=== PATIENT | male | born 1950 | race Caucasian/White ===

== ENCOUNTER → 2018-04-03 | Outpatient (CLI) | payer OTHER ==
[~2018-04-03] MED LIST: PRAMIPEXOLE PO; SEREVENT DISKU50 MCG INH
--- NOTE | 2018-04-07 08:44 | Diagnostic Imaging Report ---
PROCEDURE:MODIFIED BA. SWALLOW COMPARISON:None. INDICATIONS:Throat spasms causing choking. DISCUSSION: Fluoroscopic examination was performed in conjunction with speech pathology during swallowing of a variety of thin and thick liquid consistencies. RADIATION DOSE: Total Time: 1.1 Cumulative air kerma: 8.08 mGy FINDINGS: PREMATURE SPILLAGE: Over the base of the tongue: None To vallecula: With a thick pure. To pyriform sinus: None LARYNGEAL PENETRATION: Silent with thin liquids via straw sip. ASPIRATION: None RESIDUE: VALLECULA: None PYRIFORM SINUS: None PHARYNGEAL WALL: None BASE OF TONGUE: None CONCLUSION: Silent laryngeal penetration with liquids via straw sip. No aspiration. Please see speech pathology report. Dictated by: Leo Burgos M.D. on 04/07/2018 at 8:45 Electronically approved by: Leo Burgos M.D. on 04/07/2018 at 8:45
== END ==
LOC: DX 09:06
PROVIDERS: ATTEND Internal Medicine Gastroenterology
DX: K22.4 Dyskinesia of esophagus (principal); R12 Heartburn
CPT/HCPCS: 74230; 92611; G8996; G8997; G8998

== ENCOUNTER → 2019-04-30 | Day surgery (SDC) | payer MEDICARE, OTHER ==
[2019-04-12 11:58] LABS: BASOPHILS % 0.4 % (0.0-1.0); EOSINOPHILS # (AUTO) 0.2 (0.0-0.4); EOSINOPHILS % 2.3 % (0.0-6.0); HEMATOCRIT 43.1 % (38.2-49.6); HEMOGLOBIN 14.8 g/dL (14.0-18.0); LYMPHOCYTES # (AUTO) 2.8 (1.0-3.2); LYMPHOCYTES % 40.6 % (18.0-39.1); MEAN CORPUSCULAR HEMOGLOBIN 32.1 pg (28-32); MEAN CORPUSCULAR HGB CONC 34.3 g/dL (31-35); MEAN CORPUSCULAR VOLUME 93.5 fL (81-99); MONOCYTES # (AUTO) 0.7 (0.2-0.8); MONOCYTES % 9.4 % (4.4-11.3); NEUTROPHILS # (AUTO) 3.3 (2.1-6.9); NEUTROPHILS % 47.2 % (38.7-80.0); PLATELET COUNT 172 x10e3/uL (140-360); RED BLOOD COUNT 4.61 x10e6/uL (4.3-5.7); RED CELL DISTRIBUTION WIDTH 12.6 % (11.7-14.4)
[~2019-04-30] MED LIST changes: +FENTANYL CITRATE/PF 100MCG/2 ML INJ ONE; +GABAPENTIN100 MG; +LIDOCAINE HCL 2% LOCAL INJ 5 ML SDV VIAL INJ ONE; +MIDAZOLAM HCL 2 MG/2 ML VIAL ONE; +PRO AIR; +PROPOFOL IV EMULSION 10 MG/ML 50 ML VIAL ONE; +SYMBICORT 16010.2 GM
--- OUTSIDE RECORDS SUMMARY | 2019-04-30 07:05 | XMS REPORT ---
[facility] Address Unknown Phone Unavailable Care Team Providers Care Skiver Heel Tap Name Role Phone MARIA VICTORIA REYES Unavailable Unavailable Problems This patient has no known problems. Allergies, Adverse Reactions, Alerts This patient has no known allergies or adverse reactions. Medications This patient has no known medications. Results Test Description Test Time Test Comments Text Results Atomic Results Result Comments MODIFIED BA. SWALLOW [place] [address] Patient Name: ARMANDO ALBERTO MR #: [id number] : 1950 Age/Sex: 67/M Req #: [id number] Adm Physician: Ordered by: MARIA VICTORIA REYES MD Report #: [id number] Location: DX Room/Bed: Procedure: [id number] DX/MODIFIED BA. SWALLOW Exam Date: 04/03/18 Exam Time: 1000 REPORT STATUS: Signed PROCEDURE: MODIFIED BA. SWALLOW COMPARISON: None. INDICATIONS: Throat spasms causing choking. DISCUSSION: Fluoroscopic examination was performed in conjunction with speech pathology during swallowing of a variety of thin and thick liquid consistencies. RADIATION DOSE: Total Time: 1.1 Cumulative air kerma: 8.08 mGy FINDINGS: PREMATURE SPILLAGE: Over the base of the tongue: None To vallecula: With a thick pure. To pyriform sinus: None LARYNGEAL PENETRATION: Silent with thin liquids via straw sip. ASPIRATION: None RESIDUE: VALLECULA: None PYRIFORM SINUS: None PHARYNGEAL WALL: None BASE OF TONGUE: None CONCLUSION: Silent laryngeal penetration with liquids via straw sip. No aspiration. Please see speech pathology report. Dictated by: Ward Burgos M.D. on 04/07/2018 at 8:45 Electronically approved by: Ward Burgos M.D. on 04/07/2018 at 8:45 Dictated By: WARD BURGOS MD 4 Transcribed By: ATA on 04/07/18844 COPY TO: MARIA VICTORIA REYES MD
--- OUTSIDE RECORDS SUMMARY | 2019-04-30 07:05 | XMS REPORT | Continuity of Care Document ---
Author Author [facility] Organization [facility] Address Unknown Phone Unavailable Care Team Providers Care Flight Communications Operator Name Role Phone MD Frank, George BUTCHER Unavailable Insurance Providers Payer name Policy type / Coverage type Policy ID Covered alliance party ID Policy Davila AETNA - CHOICE PLUS - CHOICE - NAP (POS II) AETNA - CHOICE PLUS - CHOICE - NAP (POS II) Encounters Encounter Performer Location Date Office Visit George Marie MD [facility] Jun 13, 2014 Problems Problem Effective Dates Problem Status DEPRESSION Active HYPOGONADISM Mar 14, 2014 Active ASTHMA Mar 14, 2014 Active RESTLESS LEG SYNDROME Mar 14, 2014 Active KNEE PAIN, LEFT Jun 01, 2014 Active Procedures Date Description Comments Mar 14, 2014 smoking status never smoker Jun 01, 2014 smoking status Never smoker Jun 04, 2004 colonoscopy Normal Medications Medication Instructions Start Date Status SYMBICORT 80-4.5 MCG/ACT AERO 2 puff twice a day Mar 14, 2014 Active MIRAPEX 0.25 MG TABS take one tablet by mouth three times a day Mar 14, 2014 Active CITALOPRAM HYDROBROMIDE 20 MG TABS take one tablet by mouth once a day Mar 14, 2014 Active TESTOPEL 75 MG PLLT 75mg subcutaneous every 4 months. Mar 14, 2014 Active TRAMADOL HCL 50 MG TABS one tabllet po q4 prn knee pain Jun 01, 2014 Active PROAIR HFA 108 (90 BASE) MCG/ACT AERS one puff daily as needed Mar 14, 2014 Active Immunizations Vaccine Date Status dT (Diphtheria and Tetanus) booster Mar 15, 2011 completed Vital Signs Date Description Test Result Mar 14, 2014 weight E&M WEIGHT 215.31 lb Mar 14, 2014 temperature E&M TEMPERATURE 98.1 deg f Mar 14, 2014 pulse rate E&M PULSE RATE 90 /min Mar 14, 2014 blood pressure, systolic BP SYSTOLIC 120 mm Hg Mar 14, 2014 blood pressure, diastolic BP DIASTOLIC 60 mm Hg Mar 14, 2014 height E&M HEIGHT 70 in Jun 01, 2014 weight E&M WEIGHT 217 lb Jun 01, 2014 temperature E&M TEMPERATURE 98.3 deg f Jun 01, 2014 pulse rate E&M PULSE RATE 55 /min Jun 01, 2014 blood pressure, systolic BP SYSTOLIC 130 mm Hg Jun 01, 2014 blood pressure, diastolic BP DIASTOLIC 77 mm Hg Jun 13, 2014 weight E&M WEIGHT 218.5 lb Jun 13, 2014 temperature E&M TEMPERATURE 98.2 deg f Jun 13, 2014 pulse rate E&M PULSE RATE 56 /min Jun 13, 2014 blood pressure, systolic BP SYSTOLIC 134 mm Hg Jun 13, 2014 blood pressure, diastolic BP DIASTOLIC 80 mm Hg Results Date Description Test Name Value Reference Interpretation Status Jun 01, 2014 prostate specific antigen PSA 0.6 ng/mL 0.0-4.0 Jun 01, 2014 testosterone, total TESTO, TOTAL 301 ng/dL 250-1100 Jun 01, 2014 testosterone, serum, free TESTO, FREE 36.5 pg/mL 35.0-155.0
--- OUTSIDE RECORDS SUMMARY | 2019-04-30 07:05 | XMS REPORT | Continuity of Care Document ---
Author Author [facility] Organization [facility] Address Unknown Phone Unavailable Care Team Providers Care Emission Technician Name Role Phone DONY Light Catherine PP Unavailable Insurance Providers Payer name Policy type / Coverage type Policy ID Covered green party ID Policy Davila AETNA - CHOICE PLUS - CHOICE - NAP (POS II) AETNA - CHOICE PLUS - CHOICE - NAP (POS II) Encounters Encounter Performer Location Date Office Visit Kathie Light APRN [facility] [place] Sep 13, 2014 Problems Problem Effective Dates Problem Status DEPRESSION Active HYPOGONADISM Mar 14, 2014 Active ASTHMA Mar 14, 2014 Active RESTLESS LEG SYNDROME Mar 14, 2014 Active KNEE PAIN, LEFT Jun 01, 2014 Active HEALTH MAINTENANCE EXAM Sep 13, 2014 Active PARASOMNIA Sep 13, 2014 Active DEGENERATIVE JOINT DISEASE Sep 13, 2014 Active Procedures Date Description Comments Mar 14, 2014 smoking status never smoker Jun 01, 2014 smoking status Never smoker Jun 04, 2004 colonoscopy Normal Sep 13, 2014 smoking status Never smoker Medications Medication Instructions Start Date Status SYMBICORT 80-4.5 MCG/ACT AERO 2 puff twice a day Mar 14, 2014 Active MIRAPEX 0.25 MG TABS take one tablet by mouth three times a day Mar 14, 2014 Active CITALOPRAM HYDROBROMIDE 20 MG TABS take one tablet by mouth once a day Mar 14, 2014 Active PROAIR HFA 108 (90 BASE) MCG/ACT AERS one puff daily as needed Mar 14, 2014 Active TESTOPEL 75 MG PLLT 75mg subcutaneous every 4 months. Mar 14, 2014 Inactive TRAMADOL HCL 50 MG TABS one tabllet po q4 prn knee pain Jun 01, 2014 Inactive KLONOPIN 0.5 MG TABS 1 tablet 30 minute before bedtime Sep 13, 2014 Active MOBIC 7.5 MG TABS one tablet daily Sep 13, 2014 Active ANDROGEL PUMP 12.5 MG/ACT (1%) GEL Sep 13, 2014 Active Immunizations Vaccine Date Status dT (Diphtheria and Tetanus) booster given Mar 15, 2011 completed Vital Signs Date Description Test Result Mar 14, 2014 weight Sheldon - 3141-9 WEIGHT 215.31 lb Mar 14, 2014 temperature E&M TEMPERATURE 98.1 deg f Mar 14, 2014 pulse rate E&M - 8867-4 PULSE RATE 90 /min Mar 14, 2014 blood pressure, systolic - 8480-6 BP SYSTOLIC 120 mm Hg Mar 14, 2014 blood pressure, diastolic - 8462-4 BP DIASTOLIC 60 mm Hg Mar 14, 2014 height E&M - 8302-2 HEIGHT 70 in Jun 01, 2014 weight Kathryn&M - 3141-9 WEIGHT 217 lb Jun 01, 2014 temperature E&M TEMPERATURE 98.3 deg f Jun 01, 2014 pulse rate E&M - 8867-4 PULSE RATE 55 /min Jun 01, 2014 blood pressure, systolic - 8480-6 BP SYSTOLIC 130 mm Hg Jun 01, 2014 blood pressure, diastolic - 8462-4 BP DIASTOLIC 77 mm Hg Jun 13, 2014 weight Kathryn&Rima - 3141-9 WEIGHT 218.5 lb Jun 13, 2014 temperature E&M TEMPERATURE 98.2 deg f Jun 13, 2014 pulse rate E&M - 8867-4 PULSE RATE 56 /min Jun 13, 2014 blood pressure, systolic - 8480-6 BP SYSTOLIC 134 mm Hg Jun 13, 2014 blood pressure, diastolic - 8462-4 BP DIASTOLIC 80 mm Hg Sep 13, 2014 height E&M - 8302-2 HEIGHT 70 in Sep 13, 2014 weight Kathryn&Rima - 3141-9 WEIGHT 219 lb Sep 13, 2014 temperature E&M TEMPERATURE 97.7 deg f Sep 13, 2014 pulse rate E&M - 8867-4 PULSE RATE 63 /min Sep 13, 2014 blood pressure, systolic - 8480-6 BP SYSTOLIC 135 mm Hg Sep 13, 2014 blood pressure, diastolic - 8462-4 BP DIASTOLIC 77 mm Hg Results Date Description Test Name Value Reference Interpretation Status Jun 01, 2014 prostate specific antigen PSA 0.6 ng/mL 0.0-4.0 Jun 01, 2014 testosterone, total TESTO, TOTAL 301 ng/dL 250-1100 Jun 01, 2014 testosterone, serum, free TESTO, FREE 36.5 pg/mL 35.0-155.0
--- OUTSIDE RECORDS SUMMARY | 2019-04-30 07:05 | XMS REPORT | Continuity of Care Document ---
Author Author [facility] Organization [facility] Address Unknown Phone Unavailable Care Team Providers Care Hiv/Aids Care Nurse Name Role Phone DONY Light Catherine PP Unavailable Insurance Providers Payer name Policy type / Coverage type Policy ID Covered republican ID Policy Davila AETNA - CHOICE PLUS - CHOICE - NAP (POS II) AETNA - CHOICE PLUS - CHOICE - NAP (POS II) Encounters Encounter Performer Location Date Office Visit Kathie Light APRN [facility] [place] Oct 20, 2014 Problems Problem Effective Dates Problem Status [...] Sep 13, 2014 smoking status Never smoker Oct 20, 2014 smoking status Never smoker Medications Medication Instructions Start Date Status TESTOPEL 75 MG PLLT 75mg subcutaneous every 4 months. Mar 14, 2014 Inactive TRAMADOL HCL 50 MG TABS one tabllet po q4 prn knee pain Jun 01, 2014 Inactive KLONOPIN 0.5 MG TABS 1 tablet 30 minute before bedtime Sep 13, 2014 Inactive MOBIC 7.5 MG TABS one tablet daily Sep 13, 2014 Inactive ANDROGEL PUMP 12.5 MG/ACT (1%) GEL Sep 13, 2014 Active PROAIR HFA 108 (90 BASE) MCG/ACT AERS one puff daily as needed Mar 14, 2014 Inactive MIRAPEX 0.25 MG TABS take one tablet by mouth three times a day Mar 14, 2014 Inactive CITALOPRAM HYDROBROMIDE 20 MG TABS take one tablet by mouth once a day Mar 14, 2014 Inactive MELOXICAM 7.5 MG TABS one tablet daily Oct 20, 2014 Active CLONAZEPAM 0.5 MG TBDP take one tablet by mouth 30 mins before bed Oct 20, 2014 Active LOVAZA 1 GM CAPS 2 capsule twice daily Oct 20, 2014 Active SYMBICORT 80-4.5 MCG/ACT AERO 2 puff twice a day Mar 14, 2014 Active MIRAPEX 0.25 MG TABS 3 tablets one hour before bedtime Oct 20, 2014 Active PROAIR HFA 108 (90 BASE) MCG/ACT AERS 2 puffs every 4-6 hours as needed for cough, wheezing, shortness of breath Oct 20, 2014 Active Immunizations Vaccine Date Status dT (Diphtheria and Tetanus) booster given Mar 15, 2011 completed Vital Signs Date Description Test Result Mar 14, 2014 weight E&M - 3141-9 WEIGHT 215.31 lb Mar 14, [...] 70 in Jun 01, 2014 weight E&M - 3141-9 WEIGHT 217 lb Jun 01, 2014 temperature E&M TEMPERATURE 98.3 deg f Jun 01, 2014 pulse rate E&M - 8867-4 PULSE RATE 55 /min Jun 01, 2014 blood pressure, systolic - 8480-6 BP SYSTOLIC 130 mm Hg Jun 01, 2014 blood pressure, diastolic - 8462-4 BP DIASTOLIC 77 mm Hg Jun 13, 2014 weight E&M - 3141-9 WEIGHT 218.5 lb Jun 13, [...] HEIGHT 70 in Sep 13, 2014 weight E&M - 3141-9 WEIGHT 219 lb Sep 13, 2014 temperature E&M TEMPERATURE 97.7 deg f Sep 13, 2014 pulse rate E&M - 8867-4 PULSE RATE 63 /min Sep 13, 2014 blood pressure, systolic - 8480-6 BP SYSTOLIC 135 mm Hg Sep 13, 2014 blood pressure, diastolic - 8462-4 BP DIASTOLIC 77 mm Hg Oct 20, 2014 height E&M - 8302-2 HEIGHT 70 in Oct 20, 2014 weight E&M - 3141-9 WEIGHT 218 lb Oct 20, 2014 temperature E&M TEMPERATURE 98.1 deg f Oct 20, 2014 pulse rate E&M - 8867-4 PULSE RATE 66 /min Oct 20, 2014 blood pressure, systolic - 8480-6 BP SYSTOLIC 136 mm Hg Oct 20, 2014 blood pressure, diastolic - 8462-4 BP DIASTOLIC 75 mm Hg Results Date Description Test Name Value Reference Interpretation Status Jun 01, 2014 prostate specific antigen PSA 0.6 ng/mL 0.0-4.0 Jun 01, 2014 testosterone, total TESTO, TOTAL 301 ng/dL 250-1100 Jun 01, 2014 testosterone, serum, free TESTO, FREE 36.5 pg/mL 35.0-155.0
[2019-04-30 11:15] VITALS: BP 126/70
--- NOTE | 2019-04-30 12:19 | Operative Report ---
DATE OF PROCEDURE: 04/30/2019 SURGEON: Salvatore Hogue MD PROCEDURES: Esophagogastroduodenoscopy with biopsies and esophageal dilatation and colonoscopy with polypectomy. INDICATION FOR EGD: Dysphagia, nausea, vomiting, heartburn. INDICATIONS FOR COLONOSCOPY: Surveillance colonoscopy, personal history of colon polyps. MEDICATIONS: The patient was done under MAC, please see anesthesiologist's note. PROCEDURE IN DETAIL: With the patient in left lateral decubitus position, flexible fiberoptic Olympus gastroscope was introduced into the esophagus under direct visualization without any difficulty. Several erosions were noted in the distal esophagus. There was a tight stricture noted at the GE junction that was nodular and friable and was biopsied. It was traversed with gentle persistent pressure by the scope, which was advanced into the stomach traversing a small hiatal hernia. The stricture was dilated to size 48-Mosotho Mendez. Mucosa overlying the antrum and the body revealed some diffuse erythema, low-grade to moderate edema and biopsies were obtained, sent to stain for H pylori. The pylorus was of normal contour and shape, it was intubated with ease and the scope was advanced all the way to the second portion of the duodenum. Biopsies were obtained from the proximal second portion and duodenal bulb to rule out sprue. The scope was then withdrawn back into the stomach and retroflexed and mucosa overlying the fundus and cardia appeared to be within normal limits. The scope was then straightened out, it was subsequently withdrawn. The patient tolerated the procedure well. IMPRESSION: 1. Erosive esophagitis. 2. Esophageal stricture at GE junction tight, nodular, biopsied, dilated to size 48-Mosotho Mendez. 3. Small hiatal hernia. 4. Gastritis, biopsied. Biopsies sent to stain for Helicobacter pylori. 5. Rule out sprue. PLAN: Follow up histology. Initiate Protonix 40 mg one p.o. q.a.m. a.c. PROCEDURE IN DETAIL: The patient was then turned around after adequate lubrication of the anal canal, flexible fiberoptic Olympus colonoscope was inserted into the rectum with ease and advanced all the way to the cecum. The scope was then withdrawn slowly, mucosa overlying the cecum, ascending colon, transverse colon appeared to be within normal limits. One polyp was hot biopsied from the descending colon. The sigmoid appeared to be within normal limits. One polyp was hot biopsied from the rectum. The scope was then retroflexed into the distal rectum and moderate-sized internal hemorrhoids were noted, none of which was actively bleeding. The scope was then straightened out, it was subsequently withdrawn. The patient tolerated the procedure well. IMPRESSION: 1. Descending colon polyp, hot biopsied. 2. Rectal polyp, hot biopsied. 3. Internal hemorrhoids, none actively bleeding. PLAN: Followup histology. Initiate high-fiber, low-fat diet. Initiate high-fiber supplement. The patient might benefit from a followup colonoscopy in 3 to 5 years. Salvatore Hogue MD [facility] [place] /[id number] cc: Ayaan Barone DO
== END | disposition home or self-care (01) ==
LOC: OR 06:40
PROVIDERS: ATTEND Internal Medicine Gastroenterology
DX: K29.70 Gastritis, unspecified, without bleeding (principal); K63.5 Polyp of colon; K62.1 Rectal polyp; K22.2 Esophageal obstruction; K29.80 Duodenitis without bleeding; K21.0 Gastro-esophageal reflux disease with esophagitis; K22.10 Ulcer of esophagus without bleeding; K44.9 Diaphragmatic hernia without obstruction or gangrene; K64.8 Other hemorrhoids; J45.909 Unspecified asthma, uncomplicated; I10 Essential (primary) hypertension; Z01.810 Encounter for preprocedural cardiovascular examination; Z01.812 Encounter for preprocedural laboratory examination; Z68.29 Body mass index [BMI] 29.0-29.9, adult
CPT/HCPCS: 36415; 43239; 43450; 45384; 85025; 88305; 88312; 93005; J2001; J2250; J2704; 45378

== ENCOUNTER → 2019-05-21 | Day surgery (SDC) | payer MEDICARE, OTHER ==
[~2019-05-21] MED LIST changes: +KETAMINE HCL INJ 50 MG/ML 10 ML VIAL ONE; -MIDAZOLAM HCL 2 MG/2 ML VIAL ONE
--- OUTSIDE RECORDS SUMMARY | 2019-05-21 12:57 | XMS REPORT | Continuity of Care Document ---
Author Author [facility] Address Unknown Phone Unavailable Problems Problem Status Onset Date Classification Date Reported Comments Source HEALTH MAINTENANCE EXAM Active 09/13/2014 Condition 10/20/2014 [facility] PARASOMNIA Active 09/13/2014 Condition 10/20/2014 [facility] DEGENERATIVE JOINT DISEASE Active 09/13/2014 Condition 10/20/2014 [facility] KNEE PAIN, LEFT Active 06/01/2014 Condition 10/20/2014 [facility] HYPOGONADISM Active 03/14/2014 Condition 10/20/2014 [facility] ASTHMA Active 03/14/2014 Condition 10/20/2014 [facility] RESTLESS LEG SYNDROME Active 03/14/2014 Condition 10/20/2014 [facility] DEPRESSION Active Condition 10/20/2014 [facility] Medications Medication Details Route Status Patient Instructions Ordering Provider Order Date Source MELOXICAM 7.5 MG TABS one tablet daily Active 10/20/2014 [facility] CLONAZEPAM 0.5 MG TBDP take one tablet by mouth 30 mins before bed Active 10/20/2014 [facility] LOVAZA 1 GM CAPS 2 capsule twice daily Active 10/20/2014 [facility] MIRAPEX 0.25 MG TABS 3 tablets one hour before bedtime Active 10/20/2014 [facility] PROAIR HFA 108 (90 BASE) MCG/ACT AERS 2 puffs every 4-6 hours as needed for cough, wheezing, shortness of breath Active 10/20/2014 [facility] KLONOPIN 0.5 MG TABS 1 tablet 30 minute before bedtime No Longer Active 09/13/2014 [facility] MOBIC 7.5 MG TABS one tablet daily No Longer Active 09/13/2014 [facility] ANDROGEL PUMP 12.5 MG/ACT (1%) GEL Active 09/13/2014 [facility] TRAMADOL HCL 50 MG TABS one tabllet po q4 prn knee pain Active 06/01/2014 [facility] TRAMADOL HCL 50 MG TABS one tabllet po q4 prn knee pain No Longer Active 06/01/2014 [facility] TRAMADOL HCL 50 MG TABS one tabllet po q4 prn knee pain No Longer Active 06/01/2014 [facility] SYMBICORT 80-4.5 MCG/ACT AERO 2 puff twice a day Active 03/14/2014 [facility] MIRAPEX 0.25 MG TABS take one tablet by mouth three times a day Active 03/14/2014 [facility] CITALOPRAM HYDROBROMIDE 20 MG TABS take one tablet by mouth once a day Active 03/14/2014 [facility] TESTOPEL 75 MG PLLT 75mg subcutaneous every 4 months. No Longer Active 03/14/2014 [facility] PROAIR HFA 108 (90 BASE) MCG/ACT AERS one puff daily as needed Active 03/14/2014 [facility] MIRAPEX 0.25 MG TABS take one tablet by mouth three times a day No Longer Active 03/14/2014 [facility] CITALOPRAM HYDROBROMIDE 20 MG TABS take one tablet by mouth once a day No Longer Active 03/14/2014 [facility] PROAIR HFA 108 (90 BASE) MCG/ACT AERS one puff daily as needed No Longer Active 03/14/2014 [facility] Allergies, Adverse Reactions, Alerts Substance Category Reaction Severity Reaction type Status Date Reported Comments Source Immunizations Immunization Date Given Site Status Last Updated Comments Source dT (Diphtheria and Tetanus) booster 03/15/2011 completed [facility] dT (Diphtheria and Tetanus) booster given 03/15/2011 completed [facility] Results Order Name Results Value Reference Range Date Interpretation Comments Source Chemistry PSA 0.6 ng/mL 0.0 - 4.0 06/01/2014 [facility] Chemistry TESTO, TOTAL 301 ng/dL 250 - 1100 06/01/2014 [facility] Chemistry TESTO, FREE 36.5 pg/mL 35.0 - 155.0 06/01/2014 [facility] Vital Signs Vital Sign Value Date Comments Source Height 70 10/20/2014 [facility] Weight 218 10/20/2014 [facility] Temperature Oral (F) 98.1 F 10/20/2014 [facility] Heart Rate 66 10/20/2014 [facility] Systolic (mm Hg) 136 10/20/2014 [facility] Diastolic (mm Hg) 75 10/20/2014 [facility] Height 70 09/13/2014 [facility] Weight 219 09/13/2014 [facility] Temperature Oral (F) 97.7 F 09/13/2014 [facility] Heart Rate 63 09/13/2014 [facility] Systolic (mm Hg) 135 09/13/2014 [facility] Diastolic (mm Hg) 77 09/13/2014 [facility] Weight 218.5 06/13/2014 [facility] Temperature Oral (F) 98.2 F 06/13/2014 [facility] Heart Rate 56 06/13/2014 [facility] Systolic (mm Hg) 134 06/13/2014 [facility] Diastolic (mm Hg) 80 06/13/2014 [facility] Weight 217 06/01/2014 [facility] Temperature Oral (F) 98.3 F 06/01/2014 [facility] Heart Rate 55 06/01/2014 [facility] Systolic (mm Hg) 130 06/01/2014 [facility] Diastolic (mm Hg) 77 06/01/2014 [facility] Weight 215.31 03/14/2014 [facility] Temperature Oral (F) 98.1 F 03/14/2014 [facility] Heart Rate 90 03/14/2014 [facility] Systolic (mm Hg) 120 03/14/2014 [facility] Diastolic (mm Hg) 60 03/14/2014 [facility] Height 70 03/14/2014 [facility] Encounters Location Location Details Encounter Type Encounter Number Reason For Visit Attending Provider ADM Date DC Date Status Source [facility] Office Visit [id number] George Marie MD 06/13/2014 06/13/2014 Medical Group [facility] Office Visit [id number] Kathie Light, DONY 09/13/2014 09/13/2014 Medical [facility] Office Visit [id number] Kathie Light, HOME CARE SCHEDULER 10/20/2014 10/20/2014 [facility] Procedures Procedure Code Date Perfomer Comments Source colonoscopy [id number] 06/04/2004 Normal [facility]
[2019-05-21 18:00] VITALS: BP 134/77
--- NOTE | 2019-05-22 00:15 | Operative Report ---
DATE OF PROCEDURE: 05/21/2019 SURGEON: Salvatore Hogue MD PROCEDURE: EGD with esophageal dilatation and biopsies. INDICATIONS FOR EGD: History of tight nodular esophageal stricture and for additional esophageal dilatation and re-evaluation of the stricture. MEDICATIONS: The patient was done under MAC, please see anesthesiologist's note. PROCEDURE IN DETAIL: With the patient in left lateral decubitus position, a flexible fiberoptic Olympus gastroscope was introduced into the esophagus under direct visualization without any difficulty. There were some patchy erythema noted in distal esophagus. The previously described erosions appeared to have resolved. GE junction was only mildly strictured and it was dilated to size 52-Armenian Mendez and biopsies were obtained. The scope was then advanced with ease into the stomach traversing a small sliding hiatal hernia. Mucosa overlying the antrum and the body revealed some patchy areas of erythema. The pylorus was of normal contour and shape, it was intubated with ease and the scope was advanced all the way to the second portion of the duodenum. The scope was then withdrawn slowly. Mucosa overlying the proximal second portion and duodenal bulb appeared to be within normal limits. The scope was then withdrawn back into the stomach and retroflexed and mucosa overlying the fundus and the cardia appeared to be within normal limits. The scope was then straightened out, it was subsequently withdrawn. The patient tolerated the procedure well. IMPRESSION: 1. Distal esophagitis, mild. Previously described erosions appeared to have resolved. 2. Esophageal stricture at GE junction, dilated to size 52-Armenian Mendez and biopsied. 3. Small sliding hiatal hernia. 4. Gastritis, mild. PLAN: Follow up histology. Continue Protonix 40 mg one p.o. q.a.m. before meals. Salvatore Hogue MD [facility] [place] /[id number] cc: Ayaan Barone DO
== END | disposition home or self-care (01) ==
LOC: OR 12:45
PROVIDERS: ATTEND Internal Medicine Gastroenterology
DX: K21.0 Gastro-esophageal reflux disease with esophagitis (principal); K22.2 Esophageal obstruction; K29.60 Other gastritis without bleeding; K62.1 Rectal polyp; K44.9 Diaphragmatic hernia without obstruction or gangrene; K64.8 Other hemorrhoids; R03.0 Elevated blood-pressure reading, without diagnosis of hypertension; J45.909 Unspecified asthma, uncomplicated; F41.9 Anxiety disorder, unspecified; Z68.28 Body mass index [BMI] 28.0-28.9, adult
CPT/HCPCS: 43239; 43450; 88305; J2001; J2704; J3010